=== PATIENT | female | born 1995 | race Caucasian/White ===

== ENCOUNTER 2018-10-21 10:15 | Emergency (ER) | payer MEDICAID ==
[2018-10-21 10:24] VITALS: BP 86/55
--- NOTE | 2018-10-21 11:20 | ER Document Report ---
ED Skin Rash/Insect Bite/Abscs - General Chief Complaint: Abscess Stated Complaint: POSSIBLE ABSCESS Time Seen by Provider: 10/21/18 10:46 Primary Care Provider: PAYTON GARCIA DDS [ACTIVE STAFF] - 10/21/18 2:00 pm Notes: Patient is complaining of an infected tooth. Tooth began to be painful and swelling around tooth #10 about a week ago. She saw a local dentist on Thursday who put her on clindamycin and [place]. That did not help so they rechecked with him yesterday and he added penicillin to her antibiotic regimen and told her to continue taking the clindamycin. She was changed to Percocet for pain. However, it does not seem to be improving today and they saw the dentist who gave her a note saying that she needed to get an injection of antibiotic. Patient's vomited a couple times in the past 2 days. Has not had a fever. Patient has a history of hepatitis C. I thyroid, and drug addiction. Mother says she saw the patient's monitor when she was admitted to the hospital once a year ago and says that her daughter had A. fib. However, she has a regular rhythm at this time and I told him that was to be very unusual to have A. fib at her age. TRAVEL OUTSIDE OF THE [place] IN LAST 30 DAYS: No - Related Data Allergies/Adverse Reactions: Sulfa (Sulfonamide Antibiotics) Allergy (Verified 10/21/18 10:17) Past Medical History - Social History Smoking Status: Current Every Day Smoker Chew tobacco use (# tins/day): No Frequency of alcohol use: None Drug Abuse: Other Family History: Reviewed & Not Pertinent Patient has suicidal ideation: No Patient has homicidal ideation: No - Past Medical History Cardiac Medical History: Reports: Hx Atrial Fibrillation Psychiatric Medical History: Reports: Hx Bipolar Disorder Past Surgical History: Reports: Hx Tonsillectomy Review of Systems - Review of Systems Notes: CONSTITUTIONAL : Denies fever. CARDIOVASCULAR: Denies chest pain. RESPIRATORY: Denies cough, chest congestion, or shortness of breath. GASTROINTESTINAL: Denies abdominal pain or nausea, vomiting, or diarrhea. GENITOURINARY: Denies difficulty or painful urinating, urinary frequency, blood in urine. Physical Exam - Vital signs Vitals: Temp Pulse Resp BP Pulse Ox 98.3 F 84 15 86/55 L 97 10/21/18 10:20 10/21/18 10:20 10/21/18 10:20 10/21/18 10:20 10/21/18 10:20 Interpretation: Hypotensive - Blood pressure slightly decreased, but not clinically of significance. Notes: PHYSICAL EXAMINATION: GENERAL: Well-appearing, no acute distress. HEAD: Atraumatic, normocephalic. Patient has a tender, slightly swollen area in the sulcus of her left upper gingiva around tooth #10. No drainage. NECK: Normal range of motion, supple. LUNGS: Breath sounds clear and equal bilaterally. HEART: Regular rate and rhythm without murmurs heard. ABDOMEN: Soft, nontender. No guarding or rebound or masses felt. Course - Re-evaluation Re-evalutation: 10/21/18 19:02 Since her apparent abscess has not responded to appropriate oral antibiotics, I contacted the local oral surgeons office and arrange for the patient to be seen there at 2:00 this afternoon for more definitive care by the oral surgery attendant. - Vital Signs Vital signs: Temp Pulse Resp BP Pulse Ox 98.3 F 84 15 86/55 L 97 10/21/18 10:20 10/21/18 10:20 10/21/18 10:20 10/21/18 10:20 10/21/18 10:20 Discharge - Discharge Clinical Impression: Dental abscess Condition: Stable Disposition: HOME, SELF-CARE Additional Instructions: Dental Infection or Abscess You have an infection, perhaps an abscess (pus formation) of the gum around one of your teeth, which is probably decayed. If there is an abscess, it may drain on its own or it may need to be opened or lanced. Severe swelling or drainage around a tooth usually means a deep dental abscess which usually requires evaluation and treatment by a dentist or oral surgeon. Antibiotics may be prescribed while awaiting dental treatment. If you develop high fever with chills, worsening pain, or increasing swelling in the area, see a dentist or oral surgeon immediately or return to the Emergency Department immediately. FOLLOW-UP CARE: If you have been referred to a physician for follow-up care, call the physicians office for an appointment as you were instructed or within the next two days. If you experience worsening or a significant change in your symptoms, notify the physician immediately or return to the Emergency Department at any time for re-evaluation. I have arranged for you to be seen by the oral surgeon, Dr. Garcia, at 2:00 this afternoon. Their office requested to come by their office after your discharge from the emergency department to get all the paperwork and registration done for them to see you at 2 PM. Referrals: PAYTON GARCIA DDS [ACTIVE STAFF] - 10/21/18 2:00 pm
== END 2018-10-21 11:34 | disposition home or self-care (01) ==
LOC: ER 10:15
DX: K04.7 Periapical abscess without sinus (principal); I48.91 Unspecified atrial fibrillation; Z88.2 Allergy status to sulfonamides; Z86.19 Personal history of other infectious and parasitic diseases
CPT/HCPCS: 99282